=== PATIENT | female | born 1985 | race Caucasian/White ===

== ENCOUNTER 2021-09-28 14:04 | Outpatient (CLI) | payer OTHER, SELFPAY ==
[2021-09-28 15:19] LABS: Alanine Aminotransferase 9 U/L (4-35); Albumin Level 4.1 g/dL (3.5-5.1); Alkaline Phosphatase 55 U/L (38-126); Anion Gap 5 mmol/L (8-16); Aspartate Amino Transferase 19 U/L (14-36); Bilirubin,Total 0.4 mg/dL (0.2-1.3); Blood Urea Nitrogen 6 mg/dL (7-17); Calcium 9.1 mg/dL (8.4-10.2); Carbon Dioxide 27 mmol/L (22-30); Chloride 103 mmol/L (98-107); Estimated Glomerular Filt Rate > 60; Glucose 83 mg/dL (65-110); Potassium 4.3 mmol/L (3.4-5.0); Sodium 135 mmol/L (137-145)
== END 2021-09-28 14:05 | disposition home or self-care (01) ==
PROVIDERS: Visit Provider Obstetrics & Gynecology Gynecologic Oncology
DX: O00.90 Unspecified ectopic pregnancy without intrauterine pregnancy (principal)
CPT/HCPCS: 36415; 80053; 84702

== ENCOUNTER 2021-10-05 16:44 | Outpatient (CLI) | payer OTHER, SELFPAY ==
[2021-10-05 18:13] LABS: Alanine Aminotransferase 10 U/L (4-35); Albumin Level 4.3 g/dL (3.5-5.1); Alkaline Phosphatase 53 U/L (38-126); Anion Gap 7 mmol/L (8-16); Aspartate Amino Transferase 19 U/L (14-36); Basophils Absolute Auto 0.1 K/mm3 (0.0-0.1); Basophils Percent Auto 1.3 % (0.2-1.2); Bilirubin,Total 0.3 mg/dL (0.2-1.3); Blood Urea Nitrogen 9 mg/dL (7-17); Calcium 8.9 mg/dL (8.4-10.2); Carbon Dioxide 28 mmol/L (22-30); Chloride 102 mmol/L (98-107); Eosinophils Absolute Auto 0.1 K/mm3 (0-0.3); Eosinophils Percent Auto 2.1 % (0-4.4); Estimated Glomerular Filt Rate > 60; Glucose 72 mg/dL (65-110); Hemoglobin 11.7 g/dL (12.0-15.0); Immature Granulocyte Absolute 0.01 K/mm3 (0.00-0.031); Immature Granulocyte Percent A 0.2 % (0-0.5); Lymphocytes Percent Auto 45.1 % (18.3-44.2); Mean Corpuscular HGB Conc 31.6 g/dl (32-36); Mean Corpuscular Hemoglobin 28.7 pg (26-34); Mean Corpuscular Volume 90.7 fl (80-100); Mean Platelet Volume 9.8 fl (7.4-10.4); Monocytes Absolute Auto 0.4 K/mm3 (0.1-0.6); Monocytes Percent Auto 8.4 % (2.6-8.5); Neutrophils Percent Auto 42.9 % (45.5-73.1); Platelet Count Result 349 k/mm3 (150-375); Potassium 3.5 mmol/L (3.4-5.0); Red Blood Count 4.08 M/mm3 (4.2-5.4); Red Cell Distribution Width 12.2 % (11.5-14.5); Sodium 137 mmol/L (137-145); White Blood Count 4.7 K/mm3 (4.5-10.0)
[2021-10-05 18:30] LABS: Beta HCG Quantitative 131.66 mIU/ML
== END 2021-10-05 16:45 | disposition home or self-care (01) ==
LOC: ANHLAB 16:48
PROVIDERS: Visit Provider Obstetrics & Gynecology Gynecologic Oncology
DX: O00.90 Unspecified ectopic pregnancy without intrauterine pregnancy (principal); Z3A.00 Weeks of gestation of pregnancy not specified
CPT/HCPCS: 36415; 80053; 84702; 85025

== ENCOUNTER 2021-10-12 12:46 | Outpatient (CLI) | payer OTHER, SELFPAY ==
[2021-10-12 13:24] LABS: Basophils Absolute Auto 0.1 K/mm3 (0.0-0.1); Basophils Percent Auto 1.8 % (0.2-1.2); Eosinophils Absolute Auto 0.1 K/mm3 (0-0.3); Hematocrit 38.2 % (37.0-47.0); Hemoglobin 11.8 g/dL (12.0-15.0); Immature Granulocyte Absolute 0.01 K/mm3 (0.00-0.031); Immature Granulocyte Percent A 0.3 % (0-0.5); Lymphocytes Absolute Auto 1.77 K/mm3 (0.9-3.2); Mean Corpuscular HGB Conc 30.9 g/dl (32-36); Mean Corpuscular Hemoglobin 28.6 pg (26-34); Mean Corpuscular Volume 92.7 fl (80-100); Mean Platelet Volume 10.3 fl (7.4-10.4); Monocytes Absolute Auto 0.4 K/mm3 (0.1-0.6); Monocytes Percent Auto 9.2 % (2.6-8.5); Neutrophils Absolute Auto 1.6 K/mm3 (1.3-6.7); Neutrophils Percent Auto 41.7 % (45.5-73.1); Platelet Count Result 332 k/mm3 (150-375); Red Blood Count 4.12 M/mm3 (4.2-5.4); Red Cell Distribution Width 12.7 % (11.5-14.5); White Blood Count 3.9 K/mm3 (4.5-10.0)
[2021-10-12 14:02] LABS: Beta HCG Quantitative 53.36 mIU/ML
[2021-10-12 14:04] LABS: Alanine Aminotransferase 10 U/L (4-35); Albumin Level 4.4 g/dL (3.5-5.1); Alkaline Phosphatase 53 U/L (38-126); Anion Gap 3 mmol/L (8-16); Aspartate Amino Transferase 21 U/L (14-36); Bilirubin,Total 0.7 mg/dL (0.2-1.3); Blood Urea Nitrogen 9 mg/dL (7-17); Calcium 9.1 mg/dL (8.4-10.2); Carbon Dioxide 29 mmol/L (22-30); Chloride 105 mmol/L (98-107); Estimated Glomerular Filt Rate > 60; Glucose 84 mg/dL (65-110); Potassium 3.9 mmol/L (3.4-5.0); Sodium 137 mmol/L (137-145)
== END 2021-10-12 12:47 | disposition home or self-care (01) ==
LOC: ANHLAB 12:48
PROVIDERS: Visit Provider Obstetrics & Gynecology Gynecologic Oncology
DX: O00.90 Unspecified ectopic pregnancy without intrauterine pregnancy (principal); Z3A.00 Weeks of gestation of pregnancy not specified
CPT/HCPCS: 36415; 80053; 84702; 85025

== ENCOUNTER 2021-10-19 12:50 | Outpatient (CLI) | payer OTHER, SELFPAY ==
[2021-10-19 13:35] LABS: Beta HCG Quantitative 8.17 mIU/ML
== END 2021-10-19 12:51 | disposition home or self-care (01) ==
PROVIDERS: Visit Provider Obstetrics & Gynecology Gynecologic Oncology
DX: O00.90 Unspecified ectopic pregnancy without intrauterine pregnancy (principal); Z3A.00 Weeks of gestation of pregnancy not specified
CPT/HCPCS: 36415; 84702

== ENCOUNTER 2021-10-26 12:18 | Outpatient (CLI) | payer OTHER, SELFPAY ==
[2021-10-26 13:04] LABS: Beta HCG Quantitative < 2.39 mIU/ML
== END 2021-10-26 12:19 | disposition home or self-care (01) ==
LOC: ANHLAB 12:23
PROVIDERS: Visit Provider Obstetrics & Gynecology Gynecologic Oncology
DX: O00.90 Unspecified ectopic pregnancy without intrauterine pregnancy (principal); Z3A.00 Weeks of gestation of pregnancy not specified
CPT/HCPCS: 36415; 84702

== ENCOUNTER 2022-03-16 10:45 | Emergency (ER) | payer OTHER, SELFPAY ==
[2022-03-16 10:48] VITALS: BP 146/92; PULSE 98; RESP 16; TEMP 36.6; O2SAT 98
--- NOTE | 2022-03-16 11:50 | ED.DENTAL ---
HPI - Dental/Oral General Chief complaint: Dental/Oral Stated complaint: mouth pain Time Seen by Provider: 03/16/22 10:55 History of Present Illness HPI Narrative: 37-year-old female presents to the emergency room for abrupt onset of left lower molar pain and swelling to her surrounding gingiva. Patient states that her dental pain is worse when exposed to cold. Related Data Allergies Allergy/AdvReac Type Severity Reaction Status Date / Time No Known Allergies Allergy Verified 03/16/22 10:50 Review of Systems Review of Systems: CONSTITUTIONAL: Denies fever, chills, or sweats. EYES: Denies visual changes, redness, or discharge. ENT: Reports dental pain CARDIOVASCULAR: Denies chest pain, palpitations, or edema. RESPIRATORY: Denies cough or dyspnea. GASTROINTESTINAL: Denies abdominal pain, nausea, vomiting, or diarrhea. GENITOURINARY: Denies dysuria or hematuria. SKIN: Denies rash or itching. MUSCULOSKELETAL: Denies back pain, joint pain, or myalgia. NEUROLOGIC: Denies headache, numbness, dizziness, or weakness. PSYCHIATRIC: Denies anxiety or depression. Exam Narrative: GENERAL: Well-appearing, well-nourished, and in no acute distress. HEAD: Normocephalic, atraumatic. EYES: PERRLA and EOMI. ENT: Cavity noted to the left lower molar, with minimal surrounding gingival erythema and soft tissue swelling; no perimandibular swelling NECK: Supple. No adenopathy or masses. No carotid bruits or JVD CHEST: Clear to auscultation. No respiratory distress. No wheezes rales or rhonchi HEART: Regular rate and rhythm. No murmur heard. Normal peripheral pulses. ABDOMEN: Soft, nontender, nondistended, normal active bowel sounds. EXTREMITIES: Normal range of motion. No edema. SKIN: Warm, dry, no rash. NEURO: No focal deficits. Alert and oriented x3. PSYCH: Normal mood and affect. Course Course Emergency Course: 1215: Left lower jaw dental block. Injected 3 cc of 0.25% bupivacaine. Patient achieved local anesthesia successfully. Vital Signs Vital signs: Vital Signs Temperature 36.6 C 03/16/22 10:48 Pulse Rate 98 03/16/22 10:48 Respiratory Rate 16 03/16/22 10:48 Blood Pressure 146/92 H 03/16/22 10:48 Pulse Oximetry 98 03/16/22 10:48 Temperature 36.6 C 03/16/22 10:48 Pulse Rate 98 03/16/22 10:48 Respiratory Rate 16 03/16/22 10:48 Blood Pressure 146/92 H 03/16/22 10:48 Pulse Oximetry 98 03/16/22 10:48 Discharge Plan Discharge Clinical Impression: Toothache, Dental caries Patient Disposition: Home, Self-Care Condition: Stable Instructions: Antibiotic Form, Toothache (ED) Additional Instructions: Follow-up with your dentist in the next 5 to 7 days. Prescriptions: New amoxicillin-pot clavulanate 875-125 mg tablet 1 tablet PO Q12H 7 Days Qty: 14 RF: 0 Follow-up/Referrals: Maxime,MD Kyle [Primary Care Provider] - Stand Alone Forms: Work/School Release IP Time of Disposition: 12:20
== END 2022-03-16 12:39 | disposition home or self-care (01) ==
PROVIDERS: Emergency Provider Nurse Practitioner Family; PCP Family Medicine
DX: K02.9 Dental caries, unspecified (principal)
CPT/HCPCS: 99283

== ENCOUNTER 2022-10-31 08:03 | Emergency (ER) | payer OTHER, SELFPAY ==
[2022-10-31 08:14] VITALS: BP 121/68; PULSE 94; RESP 16; TEMP 36.4; O2SAT 100
--- NOTE | 2022-10-31 08:32 | PC.NURSE ---
ambulating around waiting room, picking up 13kg daughter and swinging her around without difficulty.
[2022-10-31 09:34] LABS: Strep Group A RT-PCR NOT DETECTED (Negative)
[2022-10-31 10:56] LABS: Influenza A QL RT-PCR Negative (Negative); Influenza B QL RT-PCR Negative (Negative); SARS-CoV-2 RNA PCR Negative
--- NOTE | 2022-10-31 10:58 | ED.HA ---
HPI - Headache General Chief Complaint: Headache Stated Complaint: headache Time Seen by Provider: 10/31/22 09:50 History of Present Illness HPI Narrative: Patient is a 37-year-old female who presents ER with cold symptoms. This is day 3 of sinus congestion with sore throat and cough. Associate with throbbing frontal headache. No fevers or chills or sweats. No ear pressure. Also has a child who is sick as well. No known COVID exposures. Related Data Allergies Allergy/AdvReac Type Severity Reaction Status Date / Time No Known Allergies Allergy Verified 10/31/22 09:53 Review of Systems Constitutional: Constitutional: Reports no additional constitutional complaints ENT: Reports system reviewed and no additional complaints, except as documented Cardiovascular: Cardiovascular: Reports no additional cardiovascular complaints Respiratory: Respiratory: Reports no additional respiratory complaints Gastrointestinal: Gastrointestinal: Reports no additional gastrointestinal complaints PMFSH Past Medical History Medical History (Updated 10/31/22 @ 12:17 by Tony Geronimo MD) Healthy female adult Surgical History Surgical History (Updated 10/31/22 @ 11:00 by Tony Geronimo MD) No history of previous surgery Exam Narrative: GENERAL: Well-appearing, well-nourished, and in no acute distress. HEAD: Normocephalic, atraumatic. ENT: Mucous membranes moist. Normal-appearing posterior oropharynx. TMs normal bilaterally. CHEST: Clear to auscultation. No respiratory distress. HEART: Regular rate and rhythm. Normal peripheral pulses. EXTREMITIES: Normal range of motion. No edema. NEURO: Alert and oriented x3. PSYCH: Normal mood and affect. Course Course Emergency Course: Patient resting comfortably. Informed of results. Discharge home. Vital Signs Vital signs: Vital Signs Temperature 97.5 F L 10/31/22 08:14 Pulse Rate 94 10/31/22 08:14 Respiratory Rate 16 10/31/22 08:14 Blood Pressure 121/68 10/31/22 08:14 Pulse Oximetry 100 10/31/22 08:14 Oxygen Delivery Room Air 10/31/22 08:14 Temperature 97.5 F L 10/31/22 08:14 Pulse Rate 94 10/31/22 08:14 Respiratory Rate 16 10/31/22 08:14 Blood Pressure 121/68 10/31/22 08:14 Pulse Oximetry 100 10/31/22 08:14 Oxygen Delivery Room Air 10/31/22 08:14 MDM - Headache Lab Data Labs: Lab Results 10/31/22 10/31/22 Range/Units 08:46 10:02 Influenza A (RT-PCR) Negative (Negative) Influenza B (RT-PCR) Negative (Negative) SARS-CoV-2 RNA (RT-PCR) Negative Group A Strep (PCR) Not detected (Negative) Discharge Plan Discharge Clinical Impression: Upper respiratory infection Patient Disposition: Home, Self-Care Condition: Stable Instructions: Upper Respiratory Infection (ED) Additional Instructions: Return the ER if you cannot breathe, you cannot swallow, you have chest pain or shortness of breath, you have additional concerns. Prescriptions: New Mucinex DM 30-600 mg tablet extended release 12 hr 1 tablet PO Q12H PRN (Reason: cough) Qty: 14 0RF No Action amoxicillin-pot clavulanate 875-125 mg tablet 1 tablet PO Q12H 7 Days Qty: 14 0RF Follow-up/Referrals: Maxime,MD Kyle [Primary Care Provider] - 1 Week
--- NOTE | 2022-10-31 11:17 | PC.NURSE ---
Patient report received from CALIXTO Berger. All questions answered and care of patient assumed. Patient resting quietly in room with call-light in reach. NAD. Awaiting disposition.
[2022-10-31 12:25] VITALS: BP 126/70; PULSE 96; RESP 18; O2SAT 100
== END 2022-10-31 12:25 | disposition home or self-care (01) ==
PROVIDERS: Emergency Provider Emergency Medicine; PCP Family Medicine
DX: J06.9 Acute upper respiratory infection, unspecified (principal); Z20.822 Contact with and (suspected) exposure to COVID-19
CPT/HCPCS: 87636; 87651; 99283